=== PATIENT | female | born 1975 | race Caucasian/White ===

== ENCOUNTER 2024-08-30 10:32 | Emergency (ER) | payer OTHER ==
[2024-08-30 11:13] VITALS: BP 107/71; PULSE 70; RESP 18; TEMP 97.6; BMI 20.3
[2024-08-30] MEDS ORDERED: KETOROLAC TROMETHAMINE 30 MG/1 ML VIAL ONE (11:26)
[2024-08-30] MEDS: KETOROLAC TROMETHAMINE 30 MG/1 ML VIAL IM ONE (11:35)
[2024-08-30] MEDS ORDERED: CycloBENZAprine HCL 10 MG TABLET (FP) ONE (12:35)
[2024-08-30] MEDS: CycloBENZAprine HCL 10 MG TABLET (FP) PO ONE (12:39)
== END 2024-08-30 12:45 | disposition home or self-care (01) ==
LOC: JER 10:32
PROC: 3E0233Z Introduction of Anti-inflammatory into Muscle, Percutaneous Approach (ICD-10-PCS; principal; 2024-08-30)
DX: M54.50 Low back pain, unspecified (principal); K59.09 Other constipation
CPT/HCPCS: 72100-TC-FY; 99284-25

== ENCOUNTER 2024-11-19 18:21 | Inpatient (IN) | payer OTHER ==
[2024-11-19 18:39] VITALS: BMI 23.6
[2024-11-20 06:42] LABS: MCHC 31.3 g/dl (32.2-35.5); MEAN CELL VOLUME 86.5 fl (79.4-94.8); MEAN PLT VOLUME 9.7 fl (9.4-12.3); RDW 13.6 % (12.2-17.1)
[2024-11-20 06:53] LABS: GLUCOSE,RANDOM 97.0 mg/dL (74-106)
[2024-11-20 06:54] LABS: CO2 24.0 mmol/L (21-32)
[2024-11-20 06:55] LABS: CREATININE 0.5 mg/dL (0.55-1.3); SGPT/ALT 21.0 U/L (13-61)
[2024-11-20 06:56] LABS: SGOT/AST 19.0 U/L (15-37)
[2024-11-20 06:57] LABS: TOT PROT 7.8 g/dl (6.4-8.2)
[2024-11-20 06:58] LABS: ALK PHOS 116.0 U/L (45-117)
[2024-11-20] MEDS: ESCITALOPRAM OXALATE 10 MG TABLET PO SCH (10:26)
[2024-11-20] MEDS: ENOXAPARIN NA (PORCINE) 40 MG/0.4 ML DISP.SYRIN SQ SCH (10:26)
[2024-11-20] MEDS: BICTEGRAV/EMTRICIT/TENOFOV (BIKTARVY) 50-200-25 MG TABLET PO SCH (10:48)
[2024-11-20] MEDS: traZODone HCL 50 MG TABLET (FP) PO SCH (22:55)
[2024-11-21 08:51] LABS: MCHC 31.8 g/dl (32.2-35.5); MEAN CELL VOLUME 85.0 fl (79.4-94.8); MEAN PLT VOLUME 9.6 fl (9.4-12.3); RDW 13.4 % (12.2-17.1)
[2024-11-21 11:04] LABS: CO2 24.0 mmol/L (21-32); GLUCOSE,RANDOM 95.0 mg/dL (74-106)
[2024-11-21 11:08] LABS: CREATININE 0.5 mg/dL (0.55-1.3)
[2024-11-21] MEDS: POLYETHYLENE GLYCOL (HEALTHYLAX) 3350 17 GM PACKET PO SCH (13:36)
[2024-11-23 09:33] LABS: ABSOLUTE IMMATURE GRANULOCYTES 0.05 x10^3/uL (0.0-0.031); BASOPHILS # 0.05 x10^3/uL (0.01-0.08); EOSINOPHIL % 3.2 % (0.7-5.8); EOSINOPHILS # 0.29 x10^3/uL (0.04-0.36); MCHC 31.0 g/dl (32.2-35.5); MEAN CELL VOLUME 86.3 fl (79.4-94.8); MEAN PLT VOLUME 9.6 fl (9.4-12.3); MONOCYTE # 0.64 x10^3/uL (0.24-0.86); MONOCYTE % 7.0 % (4.7-12.5); RDW 13.5 % (12.2-17.1)
[2024-11-23 09:55] LABS: CO2 27.0 mmol/L (21-32); GLUCOSE,RANDOM 93.0 mg/dL (74-106)
[2024-11-23 09:58] LABS: CREATININE 0.5 mg/dL (0.55-1.3)
[2024-11-24 08:35] LABS: ABSOLUTE IMMATURE GRANULOCYTES 0.03 x10^3/uL (0.0-0.031); BASOPHILS # 0.05 x10^3/uL (0.01-0.08); EOSINOPHIL % 3.6 % (0.7-5.8); EOSINOPHILS # 0.26 x10^3/uL (0.04-0.36); MCHC 31.3 g/dl (32.2-35.5); MEAN CELL VOLUME 86.2 fl (79.4-94.8); MEAN PLT VOLUME 9.1 fl (9.4-12.3); MONOCYTE # 0.65 x10^3/uL (0.24-0.86); MONOCYTE % 9.0 % (4.7-12.5); RDW 13.5 % (12.2-17.1)
[2024-11-24 09:22] LABS: CO2 25.0 mmol/L (21-32)
[2024-11-24 09:23] LABS: GLUCOSE,RANDOM 101.0 mg/dL (74-106)
[2024-11-24 09:26] LABS: CREATININE 0.5 mg/dL (0.55-1.3)
[2024-11-24] MEDS: SENNOSIDES 8.6MG TABLET (FP) PO PRN (23:21)
[2024-11-25 09:14] LABS: ABSOLUTE IMMATURE GRANULOCYTES 0.04 x10^3/uL (0.0-0.031); BASOPHILS # 0.05 x10^3/uL (0.01-0.08); EOSINOPHIL % 3.0 % (0.7-5.8); EOSINOPHILS # 0.25 x10^3/uL (0.04-0.36); MCHC 31.0 g/dl (32.2-35.5); MEAN CELL VOLUME 85.7 fl (79.4-94.8); MEAN PLT VOLUME 9.2 fl (9.4-12.3); MONOCYTE # 0.81 x10^3/uL (0.24-0.86); MONOCYTE % 9.7 % (4.7-12.5); RDW 13.3 % (12.2-17.1)
[2024-11-25 09:56] LABS: CO2 26.0 mmol/L (21-32); GLUCOSE,RANDOM 97.0 mg/dL (74-106)
[2024-11-25 09:58] LABS: CREATININE 0.5 mg/dL (0.55-1.3)
[2024-11-25] MEDS ORDERED: ALBUTEROL SO4 HFA INHALER IH PRN ×2 (12:18→12:43)
[2024-11-26 08:49] LABS: ABSOLUTE IMMATURE GRANULOCYTES 0.03 x10^3/uL (0.0-0.031); BASOPHILS # 0.06 x10^3/uL (0.01-0.08); EOSINOPHIL % 3.7 % (0.7-5.8); EOSINOPHILS # 0.29 x10^3/uL (0.04-0.36); MCHC 31.8 g/dl (32.2-35.5); MEAN CELL VOLUME 86.0 fl (79.4-94.8); MEAN PLT VOLUME 9.2 fl (9.4-12.3); MONOCYTE # 0.74 x10^3/uL (0.24-0.86); MONOCYTE % 9.3 % (4.7-12.5); RDW 13.6 % (12.2-17.1)
[2024-11-26 09:40] LABS: GLUCOSE,RANDOM 96.0 mg/dL (74-106)
[2024-11-26 09:43] LABS: CREATININE 0.5 mg/dL (0.55-1.3); SGOT/AST 27.0 U/L (15-37); SGPT/ALT 35.0 U/L (13-61)
[2024-11-26 09:44] LABS: ALK PHOS 143.0 U/L (45-117)
[2024-11-26 09:45] LABS: TOT PROT 8.2 g/dl (6.4-8.2)
[2024-11-26 10:00] LABS: CO2 28.0 mmol/L (21-32)
[2024-11-27 08:51] LABS: ABSOLUTE IMMATURE GRANULOCYTES 0.03 x10^3/uL (0.0-0.031); BASOPHILS # 0.06 x10^3/uL (0.01-0.08); EOSINOPHIL % 3.1 % (0.7-5.8); EOSINOPHILS # 0.27 x10^3/uL (0.04-0.36); MCHC 30.8 g/dl (32.2-35.5); MEAN CELL VOLUME 86.4 fl (79.4-94.8); MEAN PLT VOLUME 9.2 fl (9.4-12.3); MONOCYTE # 0.81 x10^3/uL (0.24-0.86); MONOCYTE % 9.4 % (4.7-12.5); RDW 13.5 % (12.2-17.1)
[2024-11-27 09:18] LABS: CO2 27.0 mmol/L (21-32); GLUCOSE,RANDOM 93.0 mg/dL (74-106)
[2024-11-27 09:21] LABS: CREATININE 0.5 mg/dL (0.55-1.3); SGOT/AST 25.0 U/L (15-37); SGPT/ALT 33.0 U/L (13-61)
[2024-11-27 09:23] LABS: TOT PROT 8.7 g/dl (6.4-8.2)
[2024-11-27 09:24] LABS: ALK PHOS 150.0 U/L (45-117)
[2024-11-28 07:48] LABS: ABSOLUTE IMMATURE GRANULOCYTES 0.03 x10^3/uL (0.0-0.031); BASOPHILS # 0.06 x10^3/uL (0.01-0.08); EOSINOPHIL % 3.2 % (0.7-5.8); EOSINOPHILS # 0.24 x10^3/uL (0.04-0.36); MCHC 31.4 g/dl (32.2-35.5); MEAN CELL VOLUME 86.0 fl (79.4-94.8); MEAN PLT VOLUME 9.0 fl (9.4-12.3); MONOCYTE # 0.76 x10^3/uL (0.24-0.86); MONOCYTE % 10.1 % (4.7-12.5); RDW 13.6 % (12.2-17.1)
[2024-11-28 08:20] LABS: CO2 28.0 mmol/L (21-32)
[2024-11-28 08:22] LABS: GLUCOSE,RANDOM 98.0 mg/dL (74-106)
[2024-11-28 08:25] LABS: CREATININE 0.5 mg/dL (0.55-1.3); SGOT/AST 21.0 U/L (15-37); SGPT/ALT 27.0 U/L (13-61)
[2024-11-28 08:27] LABS: TOT PROT 8.3 g/dl (6.4-8.2)
[2024-11-28 08:28] LABS: ALK PHOS 145.0 U/L (45-117)
[2024-12-02] MEDS ORDERED: guaiFENesin/CODEINE 5 ML UNIT-DOSE CUPS PO PRN (16:36)
[2024-12-03] MEDS: ENOXAPARIN NA (PORCINE) 40 MG/0.4 ML DISP.SYRIN SQ SCH (09:59)
[2024-12-04 09:22] LABS: ABSOLUTE IMMATURE GRANULOCYTES 0.03 x10^3/uL (0.0-0.031); BASOPHILS # 0.06 x10^3/uL (0.01-0.08); EOSINOPHIL % 1.9 % (0.7-5.8); EOSINOPHILS # 0.16 x10^3/uL (0.04-0.36); MCHC 31.5 g/dl (32.2-35.5); MEAN CELL VOLUME 84.9 fl (79.4-94.8); MEAN PLT VOLUME 9.3 fl (9.4-12.3); MONOCYTE # 0.60 x10^3/uL (0.24-0.86); MONOCYTE % 7.2 % (4.7-12.5); RDW 13.8 % (12.2-17.1)
[2024-12-04 10:08] LABS: CO2 26.0 mmol/L (21-32); GLUCOSE,RANDOM 93.0 mg/dL (74-106)
[2024-12-04 10:11] LABS: CREATININE 0.5 mg/dL (0.55-1.3); SGOT/AST 16.0 U/L (15-37); SGPT/ALT 19.0 U/L (13-61)
[2024-12-04 10:13] LABS: TOT PROT 8.6 g/dl (6.4-8.2)
[2024-12-04 10:14] LABS: ALK PHOS 126.0 U/L (45-117)
[2024-12-05 09:21] LABS: ABSOLUTE IMMATURE GRANULOCYTES 0.03 x10^3/uL (0.0-0.031); BASOPHILS # 0.06 x10^3/uL (0.01-0.08); EOSINOPHIL % 1.8 % (0.7-5.8); EOSINOPHILS # 0.15 x10^3/uL (0.04-0.36); MCHC 31.1 g/dl (32.2-35.5); MEAN CELL VOLUME 86.0 fl (79.4-94.8); MEAN PLT VOLUME 9.4 fl (9.4-12.3); MONOCYTE # 0.72 x10^3/uL (0.24-0.86); MONOCYTE % 8.6 % (4.7-12.5); RDW 13.6 % (12.2-17.1)
[2024-12-05 10:13] LABS: CO2 27.0 mmol/L (21-32)
[2024-12-05 10:14] LABS: GLUCOSE,RANDOM 89.0 mg/dL (74-106)
[2024-12-05 10:16] LABS: SGOT/AST 16.0 U/L (15-37); SGPT/ALT 20.0 U/L (13-61)
[2024-12-05 10:17] LABS: CREATININE 0.5 mg/dL (0.55-1.3)
[2024-12-05 10:18] LABS: ALK PHOS 125.0 U/L (45-117); TOT PROT 8.9 g/dl (6.4-8.2)
[2024-12-06 08:41] LABS: ABSOLUTE IMMATURE GRANULOCYTES 0.04 x10^3/uL (0.0-0.031); BASOPHILS # 0.06 x10^3/uL (0.01-0.08); EOSINOPHIL % 2.1 % (0.7-5.8); EOSINOPHILS # 0.18 x10^3/uL (0.04-0.36); MCHC 31.3 g/dl (32.2-35.5); MEAN CELL VOLUME 85.4 fl (79.4-94.8); MEAN PLT VOLUME 9.5 fl (9.4-12.3); MONOCYTE # 0.75 x10^3/uL (0.24-0.86); MONOCYTE % 8.6 % (4.7-12.5); RDW 13.7 % (12.2-17.1)
[2024-12-06 09:07] LABS: CO2 27.0 mmol/L (21-32); GLUCOSE,RANDOM 92.0 mg/dL (74-106)
[2024-12-06 09:10] LABS: CREATININE 0.5 mg/dL (0.55-1.3); SGOT/AST 14.0 U/L (15-37); SGPT/ALT 18.0 U/L (13-61)
[2024-12-06 09:13] LABS: ALK PHOS 127.0 U/L (45-117); TOT PROT 9.2 g/dl (6.4-8.2)
[2024-12-07 08:51] LABS: ABSOLUTE IMMATURE GRANULOCYTES 0.03 x10^3/uL (0.0-0.031); BASOPHILS # 0.07 x10^3/uL (0.01-0.08); EOSINOPHIL % 2.1 % (0.7-5.8); EOSINOPHILS # 0.18 x10^3/uL (0.04-0.36); MCHC 31.3 g/dl (32.2-35.5); MEAN CELL VOLUME 84.7 fl (79.4-94.8); MEAN PLT VOLUME 9.2 fl (9.4-12.3); MONOCYTE # 0.69 x10^3/uL (0.24-0.86); MONOCYTE % 8.1 % (4.7-12.5); RDW 13.7 % (12.2-17.1)
[2024-12-07 09:22] LABS: CO2 26.0 mmol/L (21-32); GLUCOSE,RANDOM 92.0 mg/dL (74-106)
[2024-12-07 09:25] LABS: CREATININE 0.4 mg/dL (0.55-1.3); SGOT/AST 14.0 U/L (15-37); SGPT/ALT 18.0 U/L (13-61)
[2024-12-07 09:27] LABS: ALK PHOS 109.0 U/L (45-117); TOT PROT 8.8 g/dl (6.4-8.2)
[2024-12-08 08:09] LABS: ABSOLUTE IMMATURE GRANULOCYTES 0.03 x10^3/uL (0.0-0.031); BASOPHILS # 0.05 x10^3/uL (0.01-0.08); EOSINOPHIL % 3.0 % (0.7-5.8); EOSINOPHILS # 0.26 x10^3/uL (0.04-0.36); MCHC 31.4 g/dl (32.2-35.5); MEAN CELL VOLUME 85.7 fl (79.4-94.8); MEAN PLT VOLUME 9.6 fl (9.4-12.3); MONOCYTE # 0.82 x10^3/uL (0.24-0.86); MONOCYTE % 9.4 % (4.7-12.5); RDW 13.8 % (12.2-17.1)
[2024-12-08 08:34] LABS: CO2 27.0 mmol/L (21-32); GLUCOSE,RANDOM 93.0 mg/dL (74-106)
[2024-12-08 08:37] LABS: CREATININE 0.4 mg/dL (0.55-1.3); SGOT/AST 12.0 U/L (15-37); SGPT/ALT 17.0 U/L (13-61)
[2024-12-08 08:38] LABS: TOT PROT 8.5 g/dl (6.4-8.2)
[2024-12-08 08:39] LABS: ALK PHOS 120.0 U/L (45-117)
[2024-12-09 09:03] LABS: ABSOLUTE IMMATURE GRANULOCYTES 0.04 x10^3/uL (0.0-0.031); BASOPHILS # 0.06 x10^3/uL (0.01-0.08); EOSINOPHIL % 2.8 % (0.7-5.8); EOSINOPHILS # 0.26 x10^3/uL (0.04-0.36); MCHC 31.1 g/dl (32.2-35.5); MEAN CELL VOLUME 86.6 fl (79.4-94.8); MEAN PLT VOLUME 9.6 fl (9.4-12.3); MONOCYTE # 0.83 x10^3/uL (0.24-0.86); MONOCYTE % 8.9 % (4.7-12.5); RDW 14.0 % (12.2-17.1)
[2024-12-09 09:57] LABS: CO2 25.0 mmol/L (21-32)
[2024-12-09 10:00] LABS: CREATININE 0.5 mg/dL (0.55-1.3); SGOT/AST 16.0 U/L (15-37); SGPT/ALT 18.0 U/L (13-61)
[2024-12-09 10:02] LABS: TOT PROT 8.9 g/dl (6.4-8.2)
[2024-12-09 10:03] LABS: ALK PHOS 119.0 U/L (45-117)
[2024-12-09 10:04] LABS: GLUCOSE,RANDOM 92.0 mg/dL (74-106)
[2024-12-10] MEDS: BEDAQUILINE FUMARATE 100 MG TABLET PO SCH (14:26)
[2024-12-10] MEDS: [UNRECOGNIZED DRUG - OTHER] PO SCH (14:26)
[2024-12-10] MEDS: LINEZOLID 600 MG TABLET (RESTRICTED TO ID) PO SCH (14:26)
[2024-12-10] MEDS: MOXIFLOXACIN HCL 400 MG TABLET PO SCH (14:26)
[2024-12-11 08:47] LABS: ABSOLUTE IMMATURE GRANULOCYTES 0.04 x10^3/uL (0.0-0.031); BASOPHILS # 0.05 x10^3/uL (0.01-0.08); EOSINOPHIL % 3.0 % (0.7-5.8); EOSINOPHILS # 0.26 x10^3/uL (0.04-0.36); MCHC 31.5 g/dl (32.2-35.5); MEAN CELL VOLUME 84.9 fl (79.4-94.8); MEAN PLT VOLUME 9.5 fl (9.4-12.3); MONOCYTE # 0.73 x10^3/uL (0.24-0.86); MONOCYTE % 8.5 % (4.7-12.5); RDW 14.0 % (12.2-17.1)
[2024-12-11 09:21] LABS: CO2 25.0 mmol/L (21-32); GLUCOSE,RANDOM 95.0 mg/dL (74-106)
[2024-12-11 09:24] LABS: CREATININE 0.5 mg/dL (0.55-1.3); SGOT/AST 13.0 U/L (15-37); SGPT/ALT 17.0 U/L (13-61)
[2024-12-11 09:25] LABS: TOT PROT 9.0 g/dl (6.4-8.2)
[2024-12-11 09:27] LABS: ALK PHOS 104.0 U/L (45-117)
[2024-12-12 08:27] LABS: ABSOLUTE IMMATURE GRANULOCYTES 0.04 x10^3/uL (0.0-0.031); BASOPHILS # 0.04 x10^3/uL (0.01-0.08); EOSINOPHIL % 3.6 % (0.7-5.8); EOSINOPHILS # 0.26 x10^3/uL (0.04-0.36); MCHC 31.2 g/dl (32.2-35.5); MEAN CELL VOLUME 84.7 fl (79.4-94.8); MEAN PLT VOLUME 9.3 fl (9.4-12.3); MONOCYTE # 0.70 x10^3/uL (0.24-0.86); MONOCYTE % 9.6 % (4.7-12.5); RDW 14.0 % (12.2-17.1)
[2024-12-12 09:25] LABS: CO2 24.0 mmol/L (21-32); GLUCOSE,RANDOM 96.0 mg/dL (74-106)
[2024-12-12 09:27] LABS: SGPT/ALT 16.0 U/L (13-61)
[2024-12-12 09:28] LABS: ALK PHOS 105.0 U/L (45-117); CREATININE 0.5 mg/dL (0.55-1.3); SGOT/AST 14.0 U/L (15-37)
[2024-12-12 09:29] LABS: TOT PROT 8.7 g/dl (6.4-8.2)
[2024-12-13 10:25] LABS: ABSOLUTE IMMATURE GRANULOCYTES 0.04 x10^3/uL (0.0-0.031); BASOPHILS # 0.04 x10^3/uL (0.01-0.08); EOSINOPHIL % 3.4 % (0.7-5.8); EOSINOPHILS # 0.22 x10^3/uL (0.04-0.36); MCHC 31.3 g/dl (32.2-35.5); MEAN CELL VOLUME 85.2 fl (79.4-94.8); MEAN PLT VOLUME 9.5 fl (9.4-12.3); MONOCYTE # 0.45 x10^3/uL (0.24-0.86); MONOCYTE % 6.9 % (4.7-12.5); RDW 14.1 % (12.2-17.1)
[2024-12-13 11:20] LABS: CO2 24.0 mmol/L (21-32); GLUCOSE,RANDOM 134.0 mg/dL (74-106)
[2024-12-13 11:23] LABS: CREATININE 0.6 mg/dL (0.55-1.3); SGOT/AST 12.0 U/L (15-37); SGPT/ALT 14.0 U/L (13-61)
[2024-12-13 11:24] LABS: TOT PROT 9.1 g/dl (6.4-8.2)
[2024-12-13 11:25] LABS: ALK PHOS 104.0 U/L (45-117)
[2024-12-16 12:12] LABS: ABSOLUTE IMMATURE GRANULOCYTES 0.02 x10^3/uL (0.0-0.031); BASOPHILS # 0.05 x10^3/uL (0.01-0.08); EOSINOPHIL % 3.4 % (0.7-5.8); EOSINOPHILS # 0.24 x10^3/uL (0.04-0.36); MCHC 31.3 g/dl (32.2-35.5); MEAN CELL VOLUME 85.3 fl (79.4-94.8); MEAN PLT VOLUME 9.4 fl (9.4-12.3); MONOCYTE # 0.56 x10^3/uL (0.24-0.86); MONOCYTE % 7.8 % (4.7-12.5); RDW 14.4 % (12.2-17.1)
[2024-12-16 12:36] LABS: CO2 25.0 mmol/L (21-32); GLUCOSE,RANDOM 109.0 mg/dL (74-106)
[2024-12-16 12:39] LABS: SGOT/AST 17.0 U/L (15-37); SGPT/ALT 19.0 U/L (13-61)
[2024-12-16 12:40] LABS: CREATININE 0.6 mg/dL (0.55-1.3)
[2024-12-16 12:41] LABS: TOT PROT 9.1 g/dl (6.4-8.2)
[2024-12-16 12:42] LABS: ALK PHOS 90.0 U/L (45-117)
[2024-12-17] MEDS: ENOXAPARIN NA (PORCINE) 40 MG/0.4 ML DISP.SYRIN SQ SCH (10:09)
[2024-12-18 07:22] LABS: ABSOLUTE IMMATURE GRANULOCYTES 0.02 x10^3/uL (0.0-0.031); BASOPHILS # 0.05 x10^3/uL (0.01-0.08); EOSINOPHIL % 3.6 % (0.7-5.8); EOSINOPHILS # 0.25 x10^3/uL (0.04-0.36); MCHC 31.5 g/dl (32.2-35.5); MEAN CELL VOLUME 86.2 fl (79.4-94.8); MEAN PLT VOLUME 9.4 fl (9.4-12.3); MONOCYTE # 0.58 x10^3/uL (0.24-0.86); MONOCYTE % 8.3 % (4.7-12.5); RDW 14.7 % (12.2-17.1)
[2024-12-18 08:20] LABS: CO2 26.0 mmol/L (21-32); GLUCOSE,RANDOM 94.0 mg/dL (74-106)
[2024-12-18 08:21] LABS: SGPT/ALT 26.0 U/L (13-61)
[2024-12-18 08:22] LABS: CREATININE 0.6 mg/dL (0.55-1.3); SGOT/AST 23.0 U/L (15-37)
[2024-12-18 08:23] LABS: TOT PROT 8.7 g/dl (6.4-8.2)
[2024-12-18 08:25] LABS: ALK PHOS 90.0 U/L (45-117)
[2024-12-21 11:25] LABS: ABSOLUTE IMMATURE GRANULOCYTES 0.03 x10^3/uL (0.0-0.031); BASOPHILS # 0.04 x10^3/uL (0.01-0.08); EOSINOPHIL % 2.2 % (0.7-5.8); EOSINOPHILS # 0.17 x10^3/uL (0.04-0.36); MCHC 31.6 g/dl (32.2-35.5); MEAN CELL VOLUME 85.5 fl (79.4-94.8); MEAN PLT VOLUME 9.5 fl (9.4-12.3); MONOCYTE # 0.78 x10^3/uL (0.24-0.86); MONOCYTE % 10.3 % (4.7-12.5); RDW 15.4 % (12.2-17.1)
[2024-12-21 11:38] LABS: GLUCOSE,RANDOM 114.0 mg/dL (74-106)
[2024-12-21 11:40] LABS: SGOT/AST 33.0 U/L (15-37); SGPT/ALT 47.0 U/L (13-61)
[2024-12-21 11:41] LABS: CREATININE 0.6 mg/dL (0.55-1.3)
[2024-12-21 11:42] LABS: TOT PROT 9.0 g/dl (6.4-8.2)
[2024-12-21 11:43] LABS: ALK PHOS 100.0 U/L (45-117)
[2024-12-21 12:02] LABS: CO2 26.0 mmol/L (21-32)
[2024-12-24 08:44] LABS: ABSOLUTE IMMATURE GRANULOCYTES 0.04 x10^3/uL (0.0-0.031); BASOPHILS # 0.04 x10^3/uL (0.01-0.08); EOSINOPHIL % 2.4 % (0.7-5.8); EOSINOPHILS # 0.17 x10^3/uL (0.04-0.36); MCHC 31.5 g/dl (32.2-35.5); MEAN CELL VOLUME 86.2 fl (79.4-94.8); MEAN PLT VOLUME 9.7 fl (9.4-12.3); MONOCYTE # 0.65 x10^3/uL (0.24-0.86); MONOCYTE % 9.2 % (4.7-12.5); RDW 15.9 % (12.2-17.1)
[2024-12-24 09:32] LABS: CO2 28.0 mmol/L (21-32); GLUCOSE,RANDOM 92.0 mg/dL (74-106)
[2024-12-24 09:35] LABS: CREATININE 0.5 mg/dL (0.55-1.3); SGOT/AST 40.0 U/L (15-37); SGPT/ALT 58.0 U/L (13-61)
[2024-12-24 09:36] LABS: TOT PROT 9.0 g/dl (6.4-8.2)
[2024-12-24 09:38] LABS: ALK PHOS 116.0 U/L (45-117)
[2024-12-24] MEDS: BEDAQUILINE FUMARATE 100 MG TABLET PO SCH (17:27)
[2024-12-27 07:29] LABS: ABSOLUTE IMMATURE GRANULOCYTES 0.03 x10^3/uL (0.0-0.031); BASOPHILS # 0.04 x10^3/uL (0.01-0.08); EOSINOPHIL % 3.3 % (0.7-5.8); EOSINOPHILS # 0.24 x10^3/uL (0.04-0.36); MCHC 31.9 g/dl (32.2-35.5); MEAN CELL VOLUME 85.6 fl (79.4-94.8); MEAN PLT VOLUME 9.2 fl (9.4-12.3); MONOCYTE # 0.75 x10^3/uL (0.24-0.86); MONOCYTE % 10.2 % (4.7-12.5); RDW 16.4 % (12.2-17.1)
[2024-12-27 07:49] LABS: CO2 28.0 mmol/L (21-32); GLUCOSE,RANDOM 101.0 mg/dL (74-106)
[2024-12-27 07:50] LABS: SGPT/ALT 54.0 U/L (13-61)
[2024-12-27 07:51] LABS: SGOT/AST 28.0 U/L (15-37)
[2024-12-27 07:52] LABS: CREATININE 0.5 mg/dL (0.55-1.3); TOT PROT 8.8 g/dl (6.4-8.2)
[2024-12-27 07:53] LABS: ALK PHOS 126.0 U/L (45-117)
[2024-12-30 08:55] LABS: ABSOLUTE IMMATURE GRANULOCYTES 0.03 x10^3/uL (0.0-0.031); BASOPHILS # 0.05 x10^3/uL (0.01-0.08); EOSINOPHIL % 3.9 % (0.7-5.8); EOSINOPHILS # 0.29 x10^3/uL (0.04-0.36); MCHC 31.4 g/dl (32.2-35.5); MEAN CELL VOLUME 86.3 fl (79.4-94.8); MEAN PLT VOLUME 9.3 fl (9.4-12.3); MONOCYTE # 0.76 x10^3/uL (0.24-0.86); MONOCYTE % 10.3 % (4.7-12.5); RDW 16.0 % (12.2-17.1)
[2024-12-30 10:11] LABS: GLUCOSE,RANDOM 85.0 mg/dL (74-106)
[2024-12-30 10:12] LABS: TOT PROT 9.3 g/dl (6.4-8.2)
[2024-12-30 10:13] LABS: CO2 23.0 mmol/L (21-32)
[2024-12-30 10:14] LABS: ALK PHOS 121.0 U/L (40-150)
[2024-12-30 10:17] LABS: CREATININE 0.46 mg/dL (0.55-1.3); SGOT/AST 31.0 U/L (5-34); SGPT/ALT 41.0 U/L (0-55)
[2025-01-01 15:23] VITALS: BP 125/82; PULSE 104; RESP 18; TEMP 97.7
== END 2025-01-01 15:13 | disposition home or self-care (01) | DRG 137 ==
LOC: JER 18:21 → JERBED 20:18 → J6S 11-20 09:01 → J8W 11-20 18:11
PROVIDERS: ADMIT Student in an Organized Health Care Education/Training Program; ATTEND Student in an Organized Health Care Education/Training Program
DX: A15.0 Tuberculosis of lung (principal); D69.6 Thrombocytopenia, unspecified; F32.A Depression, unspecified; B99.9 Unspecified infectious disease; D75.839 Thrombocytosis, unspecified; R52 Pain, unspecified; J45.909 Unspecified asthma, uncomplicated; R05.8 Other specified cough; Z21 Asymptomatic human immunodeficiency virus [HIV] infection status
CPT/HCPCS: 36415; 71045-TC-FY; 80048; 80053; 83735; 84100; 84703; 85025; 85027; 86803; 87070; 87116; 87205; 87206; 87305; 87389; 93005; 93010; 99282-25; 99285-25